=== PATIENT | female | born 1990 | race Asian ===

== ENCOUNTER 2023-02-19 07:58 | Emergency (ER) | payer OTHER ==
[~2023-02-19] VITALS: Ht 149.9 cm; Wt 59.0 kg
--- NOTE | 2023-02-19 08:05 | NUR ---
TO ER BED 11. BIBS WITH RING STUCK IN IN 5TH DIGIT,LEFT HAND DUE TO DISTAL SWELLING OF THE FINGER.
--- NOTE | 2023-02-19 08:29 | NUR ---
emd at bedside trying to do removal of stuck ring R4th finger
--- NOTE | 2023-02-19 08:39 | NUR ---
PT WAS ADVISED TO WAIT FOR AN HOUR FOR SWELLING TO SUBSIDE UNDER ICE
--- NOTE | 2023-02-19 10:24 | NUR ---
TECH AT BEDSIDE CUT THE RING, DONE. WILL SOAK HAND FOR THE OTHER PART OF TH RING R4TH FINGER
--- NOTE | 2023-02-19 10:49 | NUR ---
Patient discharged to home in stable condition. Written and verbal after care instructions given. Patient verbalizes understanding of instruction.
[2023-02-19 10:50] VITALS: BP 112/73
== END 2023-02-19 10:50 | disposition home or self-care (01) ==
LOC: ER 07:58
DX: S60.444A External constriction of right ring finger, initial encounter (principal); Z88.8 Allergy status to other drugs, medicaments and biological substances; W49.04XA Ring or other jewelry causing external constriction, initial encounter; Y93.89 Activity, other specified; Y92.89 Other specified places as the place of occurrence of the external cause; Y99.8 Other external cause status